=== PATIENT | female | born 1970 | race Caucasian/White ===

== ENCOUNTER → 2020-04-23 12:03 | Outpatient (CLI) | payer OTHER, SELFPAY ==
--- NOTE | ~2020-04-23 | US_ITS ---
EXAMINATION: US transvaginal DATE: 04/23/2020 12:28 INDICATION: Pelvic pain Comparison:No prior studies for comparison. TECHNIQUE: Multiple transabdominal and endovaginal sonographic images of the pelvis performed. FINDINGS: The uterus measures 7.8 x 3.7 x 4.7 cm. There is a uterine fibroid measuring 2.4 x 2.3 x 2. 2 cm. The endometrial complex measures 6 mm. The right ovary measures 2.2 x 2.8 x 2.5 cm. There is a 1.7 cm right ovarian cyst. The left ovary is not visualized. There are small follicles in each ovary. There is no free fluid in the pelvis. There are no abnormal masses seen on either side. IMPRESSION: 1. Uterine fibroid measuring 2.4 cm maximum dimension. 2: Right ovarian cyst measuring 1.7 cm. Reviewed, dictated and finalized at location A.
--- NOTE | ~2020-04-23 | MM_ITS ---
EXAMINATION: MM screening [facility] BI [facility] HISTORY: Screening mammogram TECHNIQUE: Craniocaudal and mediolateral oblique 3-D tomosynthesis images were obtained and synthetic 2-D images were generated. CAD analysis was submitted and interpreted. COMPARISON: 04/26/2018, 03/17/1917, 02/26/2016 BREAST PARENCHYMAL COMPOSITION: There are scattered areas of fibroglandular density. FINDINGS: Stable asymmetry is present in the posterior third of the left breast on the craniocaudal v iew. There is no evidence of suspicious mass, calcification, or architectural distortion to suggest m alignancy in either breast. There has been no suspicious interval change. IMPRESSION: 1. No mammographic evidence of malignancy. 2. Recommend routine screening mammography in one year. BI-RADS Category 2: Benign finding(s). Reviewed, dictated and finalized at location A.
== END ==
PROVIDERS: Visit Provider Nurse Practitioner
DX: E66.01 Morbid (severe) obesity due to excess calories (principal); Z12.31 Encounter for screening mammogram for malignant neoplasm of breast; D25.9 Leiomyoma of uterus, unspecified; N83.201 Unspecified ovarian cyst, right side
CPT/HCPCS: 76830; 77063; 77067

== ENCOUNTER → 2020-06-07 13:05 | Outpatient (CLI) | payer OTHER, SELFPAY ==
--- NOTE | ~2020-06-07 | US_ITS ---
EXAMINATION: US transvaginal DATE: 06/07/2020 13:32 INDICATION: Right ovarian cyst TECHNIQUE: Multiple endovaginal sonographic images of the pelvis were obtained. COMPARISON: 04/23/2020 FINDINGS: The uterus measures 7.5 x 4.1 x 4.9 cm. There is a 2.3 cm isoechoic mass of the anterior ut erine body which has the appearance of an intramural fibroid. The endometrial complex measures 5 mm. The left ovary is not visualized however no left adnexal abnormality is seen. The right ovary measure s 1.8 x 2.2 x 1.9 cm. No right ovarian cyst is identified. There is normal vascular flow in the right ovary. There is no free fluid in the pelvis. IMPRESSION: 1. No right ovarian cyst identified. Reviewed, dictated and finalized at location A. COREMAKER
== END ==
PROVIDERS: Visit Provider Obstetrics & Gynecology Gynecology
DX: N83.201 Unspecified ovarian cyst, right side (principal)
CPT/HCPCS: 76830

== ENCOUNTER → 2021-08-21 11:22 | Outpatient (CLI) | payer OTHER, SELFPAY ==
--- NOTE | ~2021-08-21 | US_ITS ---
EXAMINATION: US transvaginal DATE: 08/21/2021 11:43 INDICATION: Abnormal uterine bleeding Comparison:Ultrasound dated 06/07/2020 TECHNIQUE: Multiple transabdominal and endovaginal sonographic images of the pelvis performed. FINDINGS: The uterus measures 7.1 x 3.8 x 4.8 cm. There is a uterine fibroid anteriorly measuring 3.3 x 2.5 x 3.3 cm. The endometrial complex measures 5 mm. The ovaries are not visualized. There is no free fluid in the pelvis. There are no abnormal masses seen on either side. IMPRESSION: 1. Uterine fibroid anteriorly measuring up to 3.3 cm. Otherwise, unremarkable pelvic ultrasound. Reviewed, dictated and finalized at location B. RNET SOURCER IMPRESSION: 1. Uterine fibroid anteriorly measuring up to 3.3 cm. Otherwise, unremarkable p elvic ultrasound.
== END ==
PROVIDERS: Visit Provider Nurse Practitioner
DX: D25.9 Leiomyoma of uterus, unspecified (principal)
CPT/HCPCS: 76830

== ENCOUNTER → 2021-10-07 12:14 | Outpatient (CLI) | payer OTHER, SELFPAY ==
--- NOTE | ~2021-10-07 | MM_ITS ---
EXAMINATION: MM screening [facility] HISTORY: . TECHNIQUE: Craniocaudal and mediolateral oblique 3-D tomosynthesis images were obtained and synthetic 2-D images were generated. CAD analysis was submitted and interpreted. COMPARISON: No prior mammogram is available for comparison at this institution. BREAST PARENCHYMAL COMPOSITION: FINDINGS: There is no evidence of suspicious mass, calcification, or architectural distortion to sugg est malignancy in either breast. There has been no suspicious interval change. IMPRESSION: 1. No mammographic evidence of malignancy. 2. Recommend routine screening mammography in one year. BI-RADS Category 1: Negative Reviewed, dictated and finalized at location A.
== END ==
PROVIDERS: Visit Provider Nurse Practitioner
DX: Z12.31 Encounter for screening mammogram for malignant neoplasm of breast (principal)
CPT/HCPCS: 77063; 77067

== ENCOUNTER 2021-10-24 07:59 | Outpatient (CLI) | payer OTHER, SELFPAY ==
[2021-10-24 08:28] LABS: Hematocrit 43.1 % (37.0-47.0); Hemoglobin 13.7 g/dL (12.0-15.0)
[2021-10-24 08:43] LABS: Anion Gap 9 mmol/L (8-16); Blood Urea Nitrogen 14 mg/dL (7-17); Calcium 9.5 mg/dL (8.4-10.2); Carbon Dioxide 26 mmol/L (22-30); Chloride 104 mmol/L (98-107); Estimated Glomerular Filt Rate > 60; Glucose 146 mg/dL (65-110); Sodium 139 mmol/L (137-145)
== END 2021-10-24 08:00 | disposition home or self-care (01) ==
LOC: ANHSURGERY 08:03
PROVIDERS: Anesthesiology; Visit Provider Obstetrics & Gynecology Gynecology
DX: D64.9 Anemia, unspecified (principal); E11.9 Type 2 diabetes mellitus without complications; Z01.818 Encounter for other preprocedural examination
CPT/HCPCS: 36415; 80048; 85014; 85018

== ENCOUNTER 2021-10-27 00:31 | Day surgery (SDC) | payer OTHER, SELFPAY ==
[2021-10-20 09:30] VITALS: BMI 60.6
--- NOTE | 2021-10-20 09:40 | PC.NURSE ---
Addendum entered by Natalie Reynolds RN 10/21/21 10:48: STOP ASPIRIN PER DR. SANTACRUZ'S INSTRUCTIONS Original Note: Report to the Outpatient Waiting Room, entrance under the [facility] located off [facility], at time _0615__ on date _10-27-2021_. OR Time: _0815_. - You and your visitor will be asked a series of questions to screen for COVID 19 for your protection. - A mask is required within the hospital. Preoperative COVID Testing Requirements: No COVID Test needed if: (proof is required; if not received patient will have Rapid Test prior to entry) - Patient has received COVID Vaccine at least 14 days prior to procedure date or Patients may have clear liquids (water, carbonated beverages, clear teas, apple juice) until 3 hours prior to surgery with a maximum of 20 ounces. - No food from midnight until time of surgery - Infants may have breast milk until 4 hours before surgery, formula 6 hours prior to surgery. - Children will be allowed to drink immediately following surgery. If applicable, please bring a bottle or sippy cup to assist with drinking. Juice, water, soda, and popsicles are readily available. For infants on formula, please bring formula the day of surgery. Pacifiers are allowed. Take the following medications with a SIP of water the morning of surgery: ____Metoprolol Medications to discontinue per physician ____Vitamins Date to take last [id number]____[id number]____ Please no make-up, nail telugu, hairspray, perfume, deodorant, or body powder the day of surgery. No jewelry (including any body piercings) or valuables the day of surgery, leave them at home. Please take a shower or bath the night before, or the morning of, surgery with an antibacterial soap. Wear comfortable, loose fitting clothing. Children are encouraged to wear pajamas. - Jewelry must be removed prior to entering the operating room. Rings and piercings that are not removed may be cut off. - The hospital will not accept responsibility for valuables. - Please leave all valuables, including medications, at home the day of surgery. If you are going home after surgery, a licensed stunt driver must drive you home. - NO public transportation without another adult. - We recommend that an adult stay with you for 24 hours following discharge. - We also recommend that you do not drive, make important decision, drink alcoholic beverages, or take any drugs that were not prescribed by your health care provider for at least 24 hours after your discharge time. For Pediatric surgeries, we recommend two adults accompany the child home (only one inside the building at this time). One visitor will be allowed to accompany the patient into the hospital. Patients visitor will be instructed to remain with patient at all times or leave the building. We will allow the visitor to come back to the postoperative area when patient is ready. Follow any additional instructions given to you from your surgeon. Telephone instructions given to ____Patient____and asked if any additional questions and then verbalized understanding. Patient advised to call surgeon office or pre surgery nurse liaison [phone] if any additional questions.
[2021-10-27] VITALS (8 sets, daily range): BP systolic 124–174; BP diastolic 58–112; PULSE 82–102; RESP 14–20; TEMP 36–36.2; O2SAT 93–100
[2021-10-27] MEDS: ACETAMINOPHEN 500 MG TABLET 1000 MG PO (06:51)
--- NOTE | 2021-10-27 06:59 | P.PNAN_ITS ---
Anes - Initial Pre Proc Eval Procedure: Operation Date: 10/27/21 08:15 Proposed Procedures p Hysteroscopy Dilation and Curettage - Vannesa Nixon MD Date/Time: 10/27/21 06:59 Surgeon: Vannesa Nixon MD Pre Op Diagnosis: prolong bleeding Patient Data Age: 51 Gender: F Height: 1.55 m Weight: 145.5 kg Allergies Allergy/AdvReac Type Severity Reaction Status Date / Time Penicillins Allergy Severe SWELLING Verified 10/27/21 06:46 TONGUE Home Medications Medication Instructions Recorded Confirmed Type aspirin [Aspir-Low] 81 mg PO DAILY 10/20/21 10/27/21 History atorvastatin 10 mg PO HS 10/20/21 10/27/21 History calcium carbonate [Caltrate 600] 600 mg PO DAILY 10/20/21 10/27/21 History cetirizine [Zyrtec] 10 mg PO DAILY 10/20/21 10/27/21 History cholecalciferol (vitamin D3) 25 mcg PO WEEKLY 10/20/21 10/27/21 History [Vitamin D3] dulaglutide [Trulicity] 0.75 mg SUBCUT WEEKLY 10/20/21 10/27/21 History fluticasone propionate [Flonase] 2 spray INTRANASAL DAILY PRN 10/20/21 10/27/21 History lisinopril 5 mg PO DAILY 10/20/21 10/27/21 History metformin 1,000 mg PO BID 10/20/21 10/27/21 History metoprolol tartrate 12.5 mg PO BID 10/20/21 10/27/21 History multivitamin 1 tablet PO DAILY 10/20/21 10/27/21 History Patient hx anesthesia problems: none Family hx anesthesia problems: none Results Review: All pre-operative results and documents have been reviewed as part of the pre-operative evaluation. [facility] Past Medical History Medical History (Updated 10/27/21 @ 07:00 by Bryce Ibarra DO) Diabetes type 2, controlled Hypertension Social History Social History Smoking status: Never smoker Living arrangements: with family Spiritual care concerns: No Anes - Eval Final PreProcedure Day of Procedure 10/27/21 06:59 Patient weight: super morbidly obese Heart: regular rate and rhythm Lungs: clear to auscultation and normal air movement Airway: Mallampati scale class II Neurological: alert and oriented Last oral intake: >/= 8 hours ASA classification: III Emergent: no Anesthetic plan: proceed Anesthesia type and monitoring: general GIVS and LMA and standard monitoring Results Review: All pre-operative results and documents have been reviewed as part of the pre-operative evaluation. Informed Consent: The patient's anesthetic plan and its attendant risks and benefits were discussed with the patient/family/POA. Questions were solicited and answers provided to the satisfaction of the patient/family/POA.
[2021-10-27 07:10] LABS: Glucose Point of Care 64 mg/dl (65-105)
--- NOTE | 2021-10-27 07:15 | WPDHPUPDATE1 ---
History and Physical Update Update Date/Time: 10/27/21 07:15 History and Physical has been reviewed, including an updated exam of the patient. There are NO changes in the patient's condition. Risks, benefits, and alternatives have been discussed and questions answered. Patient agrees to proceed with procedure.
--- NOTE | 2021-10-27 07:15 | PM.HPGS ---
History of Present Illness History of Present Illness Consent: Risks, benefits, and alternatives have been discussed and questions answered. Patient agrees to proceed with procedure. Chief complaint: prolong bleeding Narrative: Tara Perez is a 51 year old female who has been off Depo-Provera since November 2020. The patient had an episode of spotting in February 2021 followed by prolonged spotting from early March to June 2021. Patient was supposed to have a D&C hysteroscopy and March of 2021 but did not follow-up. Her ultrasound ordered in March of 2021 was performed 08/21/21 and showed a fibroid and an endometrial complex measuring 5mm. Blood work ordered in March of 2021 was performed in July of 2021 as well. Blood work showed a normal FSH and LH not consistent with menopause. In addition it showed a hemoglobin A1c of 10.2. It was recommended to proceed with D&C hysteroscopy to evaluate the endometrium. Risks of infection, bleeding, and perforation are reviewed. Possible pathology is also discussed. Patient voices understanding and agrees to proceed. Review of Systems Constitutional: Constitutional: Reports other (Hay fever) ENT: Reports other Respiratory: Respiratory: Reports dyspnea PMFSH Past Medical History Medical History (Updated 10/27/21 @ 07:23 by Vannesa Nixon MD) Diabetes type 2, controlled Elevated cholesterol Hypertension Surgical History Surgical History (Updated 10/27/21 @ 07:22 by Vannesa Nixon MD) History of carpal tunnel release Social History Social History Smoking status: Never smoker Living arrangements: with family Spiritual care concerns: No Meds Home Medications and Allergies Home Medications Medication Instructions Recorded Confirmed Type aspirin [Aspir-Low] 81 mg PO DAILY 10/20/21 10/27/21 History atorvastatin 10 mg PO HS 10/20/21 10/27/21 History calcium carbonate [Caltrate 600] 600 mg PO DAILY 10/20/21 10/27/21 History cetirizine [Zyrtec] 10 mg PO DAILY 10/20/21 10/27/21 History cholecalciferol (vitamin D3) 25 mcg PO WEEKLY 10/20/21 10/27/21 History [Vitamin D3] dulaglutide [Trulicity] 0.75 mg SUBCUT WEEKLY 10/20/21 10/27/21 History fluticasone propionate [Flonase] 2 spray INTRANASAL DAILY PRN 10/20/21 10/27/21 History lisinopril 5 mg PO DAILY 10/20/21 10/27/21 History metformin 1,000 mg PO BID 10/20/21 10/27/21 History metoprolol tartrate 12.5 mg PO BID 10/20/21 10/27/21 History multivitamin 1 tablet PO DAILY 10/20/21 10/27/21 History Allergies Allergy/AdvReac Type Severity Reaction Status Date / Time Penicillins Allergy Severe SWELLING Verified 10/27/21 06:46 TONGUE Vital Signs Vital Signs - 24 hr 10/27/21 06:36 Temperature 97.2 F L Pulse Rate 102 H Respiratory Rate 16 Blood Pressure 174/90 H Pulse Oximetry 96 Exam Const: General: alert Nutritional Appearance: obese (BMI of 63 and weight of 331 lb) Orientation/consciousness: patient oriented x3 Resp: Effort & Inspection: normal respiratory effort Auscultation: clear to auscultation bilaterally Cardio: Rate: regular rate Rhythm: regular rhythm GI: GI Palp: Yes Soft to palpation, No Tenderness to palpation present (GI) and No Palpable mass present : External Female Exam: normal external appearance Speculum Exam - Vagina: normal appearance of the vagina and normal vaginal discharge Speculum Exam - Cervix: normal appearance of the cervix Bimanual exam- vagina & uterus: uterine size normal and consistency normal Bimanual Exam- Adnexa, other: normal adnexae and No adnexal tenderness Neuro: General: patient oriented x3 Assessment and Plan Assessment and plan (1) Menorrhagia: Code(s): N92.0 - Excessive and frequent menstruation with regular cycle Status: Acute Assessment and Plan: Patient with prolonged bleeding. Plan is to proceed with D&C hysteroscopy to evaluate the endometrium.
[2021-10-27 07:17] LABS: Glucose Point of Care 124 mg/dl (65-105)
[2021-10-27] MEDS: LACTATED RINGERS 1,000 ML 30 ML IV CONT (07:17)
[2021-10-27] MEDS: KETOROLAC 30 MG/ML VIAL (*BKC) IV PUSH (07:52)
--- NOTE | 2021-10-27 08:12 | W.PM.PROC2 ---
Procedure Note - Detailed Date of Procedure 10/27/21 Pre-op Diagnosis prolonged bleeding Post-op Diagnosis Same Procedure Performed D&C hysteroscopy Surgeon Vannesa Nixon MD Anesthesia General (With LMA) Findings Cervical stenosis; uterus sounds to 7cm; posterior wall is thickened Description of Procedure The patient is taken to the operating room and placed under anesthesia in the dorsal lithotomy position. She was prepped and draped in the usual sterile fashion. [place] speculum was placed in unable to be opened. Giordano speculum was requested and placed. Cervix was then grasped with a tenaculum and injected in each quadrant with 1% lidocaine. The uterus is attempted to be sounded the internal stenosis of the cervix is noted. Os Finders are used and the cervix is able to be opened. The uterus is then sounded to 7cm. The cervix is serially dilated with Hegar to an 8. The diagnostic hysteroscope was placed with the stated findings. The hysteroscope was removed and the medium sharp curette used to curette the endometrium until a good uterine cry was noted all areas focusing on the posterior wall especially. All instruments were then removed. The patient is awakened from anesthesia and taken to recovery in stable condition. Sponge, needle, and instrument counts are correct per the OR staff. Estimated Blood Loss 5 Drains No Packing No Pathology Yes (Endometrial curettings) Complications No immediate complications Condition Stable Disposition PACU
[2021-10-27 08:14] LABS: Glucose Point of Care 131 mg/dl (65-105)
[2021-10-27] MEDS: oxyCODONE HCL (*CRX) 2.5 MG TAB IR PO (09:35)
== END 2021-10-27 09:53 | disposition home or self-care (01) ==
PROVIDERS: Visit Provider Obstetrics & Gynecology Gynecology
PROC: 0U5B8ZZ Destruction of Endometrium, Via Natural or Artificial Opening Endoscopic (ICD-10-PCS; CPT 58563; principal; 2021-10-27 08:15)
DX: N92.0 Excessive and frequent menstruation with regular cycle (principal); N71.1 Chronic inflammatory disease of uterus; I10 Essential (primary) hypertension; E11.9 Type 2 diabetes mellitus without complications; E78.00 Pure hypercholesterolemia, unspecified; Z79.84 Long term (current) use of oral hypoglycemic drugs; Z79.82 Long term (current) use of aspirin; Z79.899 Other long term (current) drug therapy; E66.01 Morbid (severe) obesity due to excess calories; Z68.43 Body mass index [BMI] 50.0-59.9, adult
CPT/HCPCS: 58558; 36415; 80048; 82948; 85014; 85018; 88305; A9270; J1100; J1885; J1940; J2250; J2405; J2704; J3010; J7030; J7120